=== PATIENT | female | born 1955 | race Hispanic/Latino ===

== ENCOUNTER 2022-01-11 14:01 | Emergency (ER) | payer OTHER, SELFPAY ==
--- NOTE | ~2022-01-11 | XR_ITS ---
EXAMINATION: XR abdomen/kub 1V INDICATION: Lower abdominal pain TECHNIQUE: Supine views of the abdomen were obtained on 2 radiographs. COMPARISON: 10/07/2017 FINDINGS: There are phleboliths of the pelvis. The bowel gas pattern is nonspecific. No dilated loops of bowel are evident. Surgical clips in the right upper quadrant are likely from prior cholecystecto my. There is moderate osteoarthritis of the hips. IMPRESSION: 1. Nonspecific bowel gas pattern. Reviewed, dictated and finalized at location F. CAB DRIVER
[2022-01-11 14:17] VITALS: BP 118/62; PULSE 64; RESP 20; TEMP 37.2; O2SAT 97
--- NOTE | 2022-01-11 14:35 | ED.GENADULT ---
HPI - General Adult General Chief complaint: Abdominal Pain Stated complaint: Abdominal Pain,diarrhea,Nausea Time Seen by Provider: 01/11/22 14:36 Source: patient Mode of arrival: ambulatory Limitations: no limitations History of Present Illness HPI narrative: 66-year-old female presented for complaint of lower abdominal pain worsening over the last 3 days. Endorses fever 102 at onset, associated nausea and diarrhea and decreased appetite. states stool has been black, she is taking pepto. Denies cp, palpitations, sob, hematochezia. Has taken Pepto, Gas-X, Tums for symptoms. She takes Nexium daily and Bentyl as needed. 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 Hx lap jeanette, and right ovary removal. Related Data Home Medications Medication Instructions Recorded Confirmed diltiazem HCl 180 mg PO DAILY 01/11/22 01/11/22 esomeprazole magnesium 40 mg PO DAILY 01/11/22 01/11/22 fluticasone furoate-vilanterol 1 inh INHALATION DIRECTED 01/11/22 01/11/22 [Breo Ellipta] levothyroxine [Synthroid] 75 mcg PO DAILY 01/11/22 01/11/22 Allergies Allergy/AdvReac Type Severity Reaction Status Date / Time dexamethasone Allergy Unknown Verified 01/11/22 14:38 DEXAMETHASONE SOD PHOSPHATE Allergy Unknown Uncoded 01/11/22 14:38 SEAFOOD Allergy Unknown Uncoded 01/11/22 14:38 ENVIRONMENTAL ALLERGENS AdvReac Unknown Uncoded 01/11/22 14:38 Review of Systems Review of Systems: CONSTITUTIONAL: Denies body aches, chills EYES: Denies visual changes ENT: Denies rhinorrhea, congestion CARDIOVASCULAR: Denies chest pain, palpitations, or edema. RESPIRATORY: Denies cough or dyspnea. GASTROINTESTINAL: Endorses abdominal pain, nausea, diarrhea. Denies hematochezia, melena, vomiting GENITOURINARY: Denies dysuria, hematuria, or CVA tenderness. SKIN: Denies rash, itching, or wounds. MUSCULOSKELETAL: Denies back pain, joint pain, or myalgia. NEUROLOGIC: Denies headache, numbness, tingling, or weakness. PSYCH: Denies mood change All systems reviewed & are unremarkable except as noted in HPI and below PMFSH Family History Family History Other Diabetes mellitus Family history of arthritis Hypertension Social History Social History Smoking status: Never smoker Alcohol intake: current Comments At time of signature, I have reviewed and agree with nursing past medical, surgical, social and family history unless otherwise noted. Please see nursing chart for further information. There is no relevant family history pertinent to the presenting complaint Exam Narrative: GENERAL: Appears in pain, no acute distress. HEAD: Normocephalic, atraumatic. EYES: EOMI. Conjunctivae normal. ENT: Mucous membranes pink and moist. NECK: Normal AROM. CHEST: No respiratory distress. Clear to auscultation. HEART: Regular rate and rhythm. No murmur appreciated. Normal peripheral pulses. ABDOMEN: Tender abdomen to lower quads with guarding and distension, normal active bowel sounds no rebound tenderness or asymmetry MUSCULOSKELETAL: No bony tenderness. EXTREMITIES: Normal range of motion. No edema. SKIN: Warm, dry, no rash. Capillary refill normal. Normal skin turgor. NEURO: No focal deficits. Alert and oriented x3. Gait steady. PSYCH: Normal affect. Course Course Emergency Course: urine and xray reviewed with pt. Discussed option of dc home with CLD and close monitoring, vs transfer to ER for further eval at this time given persistent pain and tenderness on exam. Pt would like [facility]. Patient is aware of diagnosis, understands and agrees to treatment plan. Portions of this record may have been created with voice recognition software Level of Care: Express Care Visit Vital Signs Vital signs: Vital Signs Temperature 99.0 F 01/11/22 14:17 Pulse Rate 64 01/11/22 14:17
== END 2022-01-11 15:30 | disposition short-term general hospital (02) ==
PROVIDERS: Emergency Provider Nurse Practitioner Family; PCP Internal Medicine
DX: R10.84 Generalized abdominal pain (principal); I10 Essential (primary) hypertension; K21.9 Gastro-esophageal reflux disease without esophagitis; K22.70 Barrett's esophagus without dysplasia
CPT/HCPCS: 74018; 81003; 87086; 99213; G0463

== ENCOUNTER 2022-09-09 15:42 | Emergency (ER) | payer OTHER, SELFPAY ==
--- NOTE | 2022-09-09 15:49 | ED.FEMALEGU ---
HPI - Female Genitourinary General Chief complaint: Urogenital-Female Stated complaint: Female Urogenital Time Seen by Provider: 09/09/22 15:57 Source: patient and RN notes reviewed Mode of arrival: ambulatory Limitations: no limitations History of Present Illness HPI Narrative: 66 y/o female presented for c/o urinary frequency, urgency and burning since yesterday. Endorses Low abdominal pain with urination. Symptoms are worse today. Denies nausea, vomiting, diarrhea, CVA tenderness, fever or chills. Denies recurrent UTIs. Related Data Home Medications Medication Instructions Recorded Confirmed diltiazem HCl 180 mg 180 mg PO DAILY 01/11/22 09/09/22 capsule,extended release 24 hr esomeprazole magnesium 40 mg 40 mg PO DAILY 01/11/22 09/09/22 capsule,delayed release fluticasone furoate 200 1 inh inhalation DIRECTED 01/11/22 09/09/22 mcg-vilanterol 25 mcg/dose inhalation powder (Breo Ellipta) levothyroxine 75 mcg tablet 75 mcg PO DAILY 01/11/22 09/09/22 (Synthroid) albuterol sulfate 90 mcg/actuation 90 mcg inhalation DIRECTED 09/09/22 09/09/22 aerosol inhaler olmesartan 40 mg tablet 40 mg DIRECTED 09/09/22 09/09/22 rosuvastatin 10 mg tablet 10 mg DIRECTED 09/09/22 09/09/22 Allergies Allergy/AdvReac Type Severity Reaction Status Date / Time dexamethasone Allergy Unknown Verified 01/11/22 14:38 DEXAMETHASONE SOD PHOSPHATE Allergy Unknown Uncoded 01/11/22 14:38 SEAFOOD Allergy Unknown Uncoded 01/11/22 14:38 ENVIRONMENTAL ALLERGENS AdvReac Unknown Uncoded 01/11/22 14:38 Review of Systems Review of Systems: CONSTITUTIONAL: Denies body aches, fever, chills, or sweats. CARDIOVASCULAR: Denies chest pain, palpitations, or edema. RESPIRATORY: Denies cough or dyspnea. GASTROINTESTINAL: Denies abdominal pain, nausea, vomiting, or diarrhea. GENITOURINARY: Reports dysuria, frequency, urgency, denies hematuria, flank pain SKIN: Denies rash, itching, or wounds. MUSCULOSKELETAL: Denies back pain or myalgia. [facility] Family History Family History Other Diabetes mellitus Family history of arthritis Hypertension Social History Social History Smoking status: Never smoker Alcohol intake: current Comments At time of signature, I have reviewed and agree with nursing past medical, surgical, social and family history unless otherwise noted. Please see nursing chart for further information. There is no relevant family history pertinent to the presenting complaint Exam Narrative: GENERAL: appears in pain; in no acute distress. ENT: Mucous membranes pink and moist. CHEST: Clear to auscultation. HEART: Regular rate and rhythm. ABDOMEN: Mild suprapubic tenderness with palpation; abd Soft, nondistended, normal active bowel sounds. No CVA tenderness MUSCULOSKELETAL: No bony tenderness. SKIN: Warm, dry, no rash. NEURO: Alert and oriented x3. PSYCH: Normal affect. Course Course Emergency Course: Patient is aware of diagnosis, understands and agrees to treatment plan. Anticipatory guidance given. Patient agrees to follow-up as directed and is aware of reasons to seek care at the emergency department. Portions of this record may have been created with voice recognition software Level of Care: Express Care Visit Vital Signs Vital signs: Reviewed MDM - Female Genitourinary MDM Narrative Medical decision making narrative: Advised supportive measures and signs/symptoms to go to the ER. Pt is appropriate for outpt treatment and f/u. Differential Diagnosis Differential diagnosis: Likely urinary tract infection, cervicitis and cystitis Discharge Plan Discharge Clinical Impression: Urinary tract infection Qualifiers: Urinary tract infection type: site unspecified Hematuria presence: with hematuria Qualified Code(s): N39.0 - Urinary tract infection, site not specified Pa
[2022-09-09 15:51] VITALS: BP 117/55; PULSE 68; RESP 20; TEMP 36.2; O2SAT 100
== END 2022-09-09 16:15 | disposition home or self-care (01) ==
PROVIDERS: Emergency Provider Nurse Practitioner Family; PCP Internal Medicine
DX: N39.0 Urinary tract infection, site not specified (principal); E78.00 Pure hypercholesterolemia, unspecified; I10 Essential (primary) hypertension; J45.909 Unspecified asthma, uncomplicated; K21.9 Gastro-esophageal reflux disease without esophagitis; Z86.16 Personal history of COVID-19
CPT/HCPCS: 81003; 87077; 87086; 87186; 99213; G0463

== ENCOUNTER 2022-10-10 08:20 | Emergency (ER) | payer OTHER, SELFPAY ==
[2022-10-10] VITALS (19 sets, daily range): BP systolic 99–126; BP diastolic 51–63; PULSE 73–88; RESP 12–23; TEMP 37; O2SAT 92–100
--- NOTE | ~2022-10-10 | XR_ITS ---
EXAMINATION: XR chest 2V DATE: 10/10/2022 09:06 INDICATION: Cough, wheezing and fever TECHNIQUE: PA and lateral views of the chest were obtained. COMPARISON: Chest radiograph dated 02/18/2018 FINDINGS: Patchy airspace opacities scattered throughout the right lung and in the left mid to lower lung zone. No pleural effusion or pneumothorax. The cardiomediastinal silhouette is normal. Mild thoracic spond ylosis. IMPRESSION: 1. Patchy bilateral airspace opacities and favor pneumonia over pulmonary edema or atelectasis. Reviewed, dictated and finalized at location A. PRINTER
[2022-10-10 08:57] LABS: Hemoglobin 12.1 g/dL (12.0-15.0); Mean Corpuscular HGB Conc 33.6 g/dl (32-36); Mean Corpuscular Hemoglobin 30.6 pg (26-34); Mean Corpuscular Volume 90.9 fl (80-100); Mean Platelet Volume 11.3 fl (7.4-10.4); Platelet Count Result 276 k/mm3 (150-375); Red Blood Count 3.96 M/mm3 (4.2-5.4); Red Cell Distribution Width 14.4 % (11.5-14.5); White Blood Count 15.8 K/mm3 (4.5-10.0)
[2022-10-10 09:10] LABS: Alanine Aminotransferase 111 U/L (6-35); Albumin Level 3.9 g/dL (3.5-5.1); Alkaline Phosphatase 60 U/L (38-126); Anion Gap 11 mmol/L (8-16); Aspartate Amino Transferase 63 U/L (14-36); Bilirubin,Total 0.7 mg/dL (0.2-1.3); Blood Urea Nitrogen 22 mg/dL (7-17); Calcium 8.5 mg/dL (8.4-10.2); Carbon Dioxide 23 mmol/L (22-30); Chloride 101 mmol/L (98-107); Estimated CRCL calculation 47 ml/min; Estimated Glomerular Filt Rate > 60; Glucose 118 mg/dL (65-110); Potassium 3.6 mmol/L (3.4-5.0); Sodium 135 mmol/L (137-145)
[2022-10-10 09:12] LABS: Band Neutrophils Percent 17 % (0-6); Eosinophils Absolute Manual 0.15 K/mm3 (0.02-0.5); Eosinophils Percent Manual 1 % (0-4); Lymphocytes Absolute Manual 0.94 K/mm3 (1.1-4.5); Neutrophils Absolute Manual 14.69 K/mm3 (1.7-7.2); Neutrophils Percent Manual 76 % (46-73); Nucleated Red Blood Cells 4 %; Total Cells Counted 100
[2022-10-10 09:13] LABS: Platelet Estimate Adequate (Adequate); Schistocytes None Seen (NORMAL)
--- NOTE | 2022-10-10 09:21 | ED.WEAKNESS ---
HPI - Weakness General Chief complaint: Weakness Stated complaint: fever, cough, weak Time Seen by Provider: 10/10/22 09:14 History of Present Illness HPI Narrative: Patient is a 66-year-old female with a history of asthma here for evaluation of generalized weakness, cough, shortness of breath, congestion over the past several days. Shortness of breath has been present constantly and is worse when she is exerting herself. Her cough is productive of clear/green sputum. Patient also notes a fever of 101 degrees at home today which prompted her ED evaluation. She states that she has been compliant with her albuterol inhalers but this has not been helping. No sick contacts, chest pain, syncope, leg swelling. Related Data Home Medications Medication Instructions Recorded Confirmed diltiazem HCl 180 mg 180 mg PO DAILY 01/11/22 09/09/22 capsule,extended release 24 hr esomeprazole magnesium 40 mg 40 mg PO DAILY 01/11/22 09/09/22 capsule,delayed release fluticasone furoate 200 1 inh inhalation DIRECTED 01/11/22 09/09/22 mcg-vilanterol 25 mcg/dose inhalation powder (Breo Ellipta) levothyroxine 75 mcg tablet 75 mcg PO DAILY 01/11/22 09/09/22 (Synthroid) albuterol sulfate 90 mcg/actuation 90 mcg inhalation DIRECTED 09/09/22 09/09/22 aerosol inhaler olmesartan 40 mg tablet 40 mg DIRECTED 09/09/22 09/09/22 rosuvastatin 10 mg tablet 10 mg DIRECTED 09/09/22 09/09/22 Allergies Allergy/AdvReac Type Severity Reaction Status Date / Time dexamethasone Allergy Unknown Itching Verified 10/10/22 08:28 SEAFOOD Allergy Unknown Difficulty Uncoded 10/10/22 08:28 Breathing ENVIRONMENTAL ALLERGENS AdvReac Unknown Unknown Uncoded 10/10/22 08:28 Review of Systems Review of Systems: Gen: Reports fevers. Eyes: Denies eye pain or visual change ENT: Reports congestion Respiratory: Reports shortness of breath and cough CV: Denies chest pain or palpitations GI: Denies abdominal pain nausea, emesis or diarrhea : denies burning, urgency, frequency or hematuria Musculoskeletal: Denies back pain or muscle pain Neuro: Denies numbness, tingling, weakness or focal weakness Skin: Denies rash Except as documented, all other systems reviewed and negative [facility] Family History Family History Other Diabetes mellitus Family history of arthritis Hypertension Social History Social History Smoking status: Never smoker Alcohol intake: current Exam Narrative: APPEARANCE: Well appearing, no pain in distress, well-nourished. Head: Normocephalic and atraumatic. EYES: PERRLA/EOMI, conjunctivae clear NOSE: No nasal drainage EARS: External ear normal in appearance THROAT: Oropharynx is clear. Mucous membranes are moist. NECK: Supple. No adenopathy, no masses. RESPIRATORY: Coarse breath sounds and expiratory wheezing throughout lung dempsey. airway patent, respirations nonlabored. CARDIOVASCULAR: Regular rate and rhythm without murmurs, rubs, or gallops. ABDOMINAL: Normoactive bowel sounds. Soft, nontender, nondistended. No rebound tenderness or guarding. MUSCULOSKELETAL: Extremities are warm and well-perfused. Moves all extremities well. No edema. NEURO: Normal speech. No focal neurologic deficits. SKIN: Skin is warm and dry. No rashes. PSYCHIATRIC: Normal affect/mood. Course Vital Signs Vital signs: Vital Signs Temperature 98.6 F 10/10/22 08:24 Pulse Rate 88 10/10/22 08:24 Respiratory Rate 16 10/10/22 08:24 Blood Pressure 126/63 10/10/22 08:24 Pulse Oximetry 93 10/10/22 08:24 Oxygen Delivery Room Air 10/10/22 08:24 Temperature 98.6 F 10/10/22 08:24 Pulse Rate 79 10/10/22 11:18 Respiratory Rate 16 10/10/22 11:18 Blood Pressure 99/51 L 10/10/22 11:18 Pulse Oximetry 94 10/10/22 11:18 Oxygen Delivery Room Air 10/10/22 08:24 MDM - Weakness MDM Narrat
[2022-10-10] MEDS: ALBUTEROL SULFATE NEB 2.5 MG/3 ML INH 5 MG INHALATION (09:27)
[2022-10-10 09:32] LABS: Influenza A QL RT-PCR Negative (Negative); Influenza B QL RT-PCR Negative (Negative); SARS-CoV-2 RNA PCR Negative
--- NOTE | 2022-10-10 09:32 | ECG_ITS ---
Measurements Intervals [place] Rate: 81 P: 33 MA: 155 QRS: 1 QRSD: 87 T: 23 QT: 372 QTc: 432 Interpretive Statements SINUS RHYTHM VOLTAGE CRITERIA FOR LVH BASELINE ARTIFACT- V3, V6 BORDERLINE ECG NO PREVIOUS ECG AVAILABLE FOR COMPARISON Electronically Signed On 10-10-2022 10:25:11 SCREEN MAKING TECHNICIAN by Anderson Iglesias D.O.
[2022-10-10] MEDS: ACETAMINOPHEN 325 MG TABLET 650 MG PO (09:45)
[2022-10-10 09:55] LABS: NT Pro B Type Natriuretic Pept 313 pg/mL (5-100)
[2022-10-10 10:45] LABS: Magnesium 1.9 mg/dL (1.6-2.3)
== END 2022-10-10 11:18 | disposition home or self-care (01) ==
PROVIDERS: Physician Assistant; Emergency Provider Emergency Medicine; PCP Internal Medicine
DX: J18.9 Pneumonia, unspecified organism (principal); Z20.822 Contact with and (suspected) exposure to COVID-19
CPT/HCPCS: 36415; 71046; 80053; 83735; 83880; 85025; 87636; 93005; 94640; 99283; A9270

== ENCOUNTER → 2023-08-16 08:34 | Outpatient (CLI) | payer OTHER, MEDICARE, SELFPAY ==
--- NOTE | ~2023-08-16 | MR_ITS ---
EXAMINATION: MR pelvis wo/w con, MR hip RT wo/w con DATE: 08/16/2023 10:30 INDICATION: Chronic right lower quadrant abdominal pain. TECHNIQUE: 1. Magnetic resonance imaging (MRI) of the pelvis was performed without and with 12 mL Multihance int ravenous contrast. Fullfield sequences of the pelvis included axial, sagittal and coronal T1-weighted FSE and T2-weighted FS FSE, T2-weighted FSE, axial T2-weighted FS FSE and postcontrast axial T1-weig hted FS FSE. Additional small [id number] axial T2-weighted FS FSE sequences were obtained of the c entral pelvis centered at the uterus. 2. MRI of the right hip was performed without and with 12 mL Multihance intravenous contrast utilizin g the same contrast bolus. Sequences included small field of view of the right hip with axial, sagit quinten and coronal PD-weighted FS FSE, coronal T2 weighted FSE, radial T1-weighted FGR oriented orthogon al to the acetabular rim and postcontrast coronal T1-weighted FS FSE. COMPARISON: CT abdomen and pelvis dated 10/07/2017 and right hip MRI dated 06/03/2012 FINDINGS: Right hip: Mild osteoarthritis at the right hip with nonuniform joint space narrowing with partial thickness car tilage loss most prominent at the posterior aspect of the femoral head and acetabulum. Tiny marginal osteophytes about the femoral head. No fracture or suspected avascular necrosis. There is degenerativ e tearing of the anterosuperior right acetabular labrum. Physiologic amount of fluid in the right hip . Mild tendinopathy without discrete tear of the distal right gluteus medius medius tendon. Pelvis: 3 cm fibroid in the posterior fundus of the retroverted uterus. Bilateral adnexa are unremarkable. Bl adder is normal. Normal appendix. Mild diverticulosis along the sigmoid and visualized lower descendi ng colon without adjacent from trace stranding to suggest diverticulitis. Tiny fat-containing umbilic al hernia. No free fluid in the pelvis. No pathologically enlarged pelvic, inguinal or lower abdomina l lymphadenopathy. Mild lower lumbar spondylosis including L5-S1 disc bulge with annular fissure and left paracentral disc extrusion with disc material extending up to 8 mm caudal to the level of the wallis perior endplate of S1. There is mild to moderate narrowing of the right L5-S1 neural foramen as well as narrowing of the lateral recesses with mass effect exerted upon the bilateral S1 traversing nerve roots. Mild to moderate left hip osteoarthritis with posterior predominant nonuniform joint space juan carlos rowing where there is high-grade chondral malacia both sides of the joint space characterized by mild subarticular edema-like signal changes there also appears be a tear of the anterosuperior left aceta bular labrum although sensitivity and specificity are decreased on the larger [id number] images. L ikely chronic degeneration of the superolateral to posterolateral left acetabular labrum which is bee n largely replaced by small marginal osteophytes along the rim of the acetabulum. No left hip joint e ffusion. Similar there is mild tendinopathy at the distal left gluteus medius medius tendon. IMPRESSION: 1. 3 cm uterine fibroid. 2. Mild sigmoid and descending colon diverticulosis. 3. Mild right and mild to moderate left hip osteoarthritis with tears of the bilateral anterosuperior acetabular labrum and chronic degeneration of the more posterior left acetabular labrum. 4. Mild lower lumbar spondylosis. 5. Mild tendinopathy without discrete tear at the bilateral knees medius tendons. Reviewed, dictated and finalized at location A. IMPRESSION: 1. 3 cm uterine fibroid. 2. Mild sigmoid and descending colon diverticulosis. 3. Mild right and mild to moderate left hip osteoarthritis with tears of the bi lateral anterosuperior acetabular labrum and chroni
== END ==
PROVIDERS: PCP Internal Medicine
DX: R10.31 Right lower quadrant pain (principal); G89.29 Other chronic pain; K57.30 Diverticulosis of large intestine without perforation or abscess without bleeding; M47.896 Other spondylosis, lumbar region; D25.9 Leiomyoma of uterus, unspecified
CPT/HCPCS: 72197; 73723; A9577

== ENCOUNTER 2024-04-19 13:35 | Outpatient (CLI) | payer MEDICARE, SELFPAY ==
--- NOTE | 2024-04-22 10:20 | WPDPFTINT ---
PFT Procedure Performed PFT Procedure Performed Spirometry with Pre/Post Bronchodilator Plethysmography (Lung Vol) Diffusing Cap (DLCO) Flow Vol Loop PFT Interpretation Lung volumes were measured with the body plethysmography method. Lung volumes are unremarkable. Spirometry showed normal expiratory flow rates and a normal FEV1 to FVC ratio of 80%. Following administration of a bronchodilator there was no significant increase in the expiratory flow rates. Lung diffusion capacity is within the normal range at 96% predicted. The flow volume loop is unremarkable. Impression: Spirometry, lung volumes, and lung diffusion capacity all within the normal range.
== END 2024-04-19 13:36 | disposition home or self-care (01) ==
PROVIDERS: PCP Internal Medicine
DX: J45.40 Moderate persistent asthma, uncomplicated (principal)
CPT/HCPCS: 93005; 94060; 94726; 94729